=== PATIENT | female | born 1980 | race Hispanic/Latino ===

== ENCOUNTER 2017-08-22 12:10 | Emergency (ER) | payer OTHER ==
[~2017-08-22] VITALS: Ht 146.1 cm; Wt 67.5 kg
[2017-08-22] MEDS ORDERED: MOTRIN800 MG PO (12:58)
[2017-08-22] MEDS ORDERED: TRAMADOL HYDROC50 MG PO (12:58)
[2017-08-22 13:00] VITALS: BP 108/68
== END 2017-08-22 13:25 | disposition home or self-care (01) | DRG 563 ==
LOC: ED 12:10
DX: S93.492A Sprain of other ligament of left ankle, initial encounter (principal); S93.602A Unspecified sprain of left foot, initial encounter; R60.9 Edema, unspecified; X50.1XXA Overexertion from prolonged static or awkward postures, initial encounter; Y93.89 Activity, other specified; Y92.73 Farm field as the place of occurrence of the external cause

== ENCOUNTER 2018-05-14 14:29 | Emergency (ER) | payer OTHER ==
[~2018-05-14] VITALS: Ht 146.1 cm; Wt 90.0 kg
[~2018-05-14 14:29] MED LIST: MOTRIN800 MG PO; TRAMADOL HYDROC50 MG PO
[2018-05-14] MEDS ORDERED: CIPROFLOXACN0.3 % OS (14:48)
[2018-05-14 15:15] VITALS: BP 105/63
== END 2018-05-14 15:15 | disposition home or self-care (01) | DRG 125 ==
LOC: ED 14:29
DX: H57.12 Ocular pain, left eye (principal); X58.XXXA Exposure to other specified factors, initial encounter; Y93.89 Activity, other specified; Y92.73 Farm field as the place of occurrence of the external cause